=== PATIENT | female | born 1970 | race Two or more races ===

== ENCOUNTER 2019-03-21 08:53 | Outpatient (CLI) | payer OTHER | END 2019-03-21 09:09 | disposition home or self-care (01) | LOC: NUCLEAR 08:53 | DX: C50.412 Malignant neoplasm of upper-outer quadrant of left female breast (principal); Z17.0 Estrogen receptor positive status [ER+] | CPT/HCPCS: 78315; A9503 ==

== ENCOUNTER 2020-04-09 10:27 | Outpatient (CLI) | payer OTHER | END 2020-04-09 22:00 | disposition home or self-care (01) | LOC: PPH VACUNA 10:27 | DX: Z23 Encounter for immunization (principal) ==

== ENCOUNTER 2021-01-02 08:00 | Outpatient (CLI) | payer OTHER | END 2021-01-02 08:30 | disposition home or self-care (01) | LOC: PPH VACUNA 08:00 | PROVIDERS: ATTEND Emergency Medicine Pediatric Emergency Medicine | DX: Z23 Encounter for immunization (principal) ==